=== PATIENT | female | born 1990 | race Two or more races ===

== ENCOUNTER 2018-07-04 21:46 | Observation (INO) | payer MEDICAID ==
[~2018-07-04] VITALS: Ht 167.6 cm; Wt 87.3 kg
[2018-07-04 22:33] VITALS: BP 117/86
[2018-07-04] MEDS ORDERED: PRENATAL VITAMIN PO (22:35)
[2018-07-04 23:45] LABS: APPEARANCE,URINE CLEAR (CLEAR); BILIRUBIN,URINE NEGATIVE (NEGATIVE); GLUCOSE, URINE (UA) NEGATIVE (NEGATIVE); KETONES,URINE NEGATIVE (NEGATIVE); LEUKOCYTE ESTERASE ,URINE NEGATIVE (NEGATIVE); NITRATE,URINE NEGATIVE (NEGATIVE); OCCULT BLOOD,URINE NEGATIVE (NEGATIVE); PH,URINE 6.5 (5.0-8.0); PROTEIN,URINE NEGATIVE (NEGATIVE); UROBILINOGEN,URINE 0.2 mg/dL (<=1.0)
[2018-07-04 23:50] LABS: BACTERIA,URINE None Seen /HPF (None Seen); RBC,URINE None Seen /HPF (0-2); SQUAMOUS EPITHELIAL CELL,UR Few /LPF (None Seen); WBC,URINE None Seen /HPF (0-5)
[2018-07-05] MEDS ORDERED: NIFEdipine 10 MG CAPSULE PO ONE
[2018-07-05] MEDS: RINGERS SOLUTION,LACTATED 1,000 ML IV SCH ×2 (00:25→04:39)
[2018-07-05] MEDS ORDERED: ACETAMINOPHEN 1000 MG/ISO-OSM 100 ML IV ONE (10:30)
== END 2018-07-05 12:00 | disposition home or self-care (01) ==
LOC: EMS 21:47 → 4S 22:51
PROVIDERS: ADMIT Obstetrics & Gynecology; ATTEND Obstetrics & Gynecology
DX: O26.893 Other specified pregnancy related conditions, third trimester (principal); R09.1 Pleurisy; R10.10 Upper abdominal pain, unspecified; O99.89 Other specified diseases and conditions complicating pregnancy, childbirth and the puerperium; M54.5 Low back pain; Z3A.36 36 weeks gestation of pregnancy
CPT/HCPCS: 71045; 80307 ×8; 81001; 93005; 96374; G0378 ×2; J0131; J7120